=== PATIENT | female | born 1955 | race Caucasian/White ===

== ENCOUNTER → 2023-03-17 13:35 | Outpatient (REF) | payer MEDICARE, OTHER, SELFPAY | LOC: HWRAD 13:35 | PROVIDERS: ATTENDING PHYSICIAN Nurse Practitioner Adult Health; FAMILY PHYSICIAN Family Medicine | DX: Z87.891 Personal history of nicotine dependence (principal) | CPT/HCPCS: 71271 ==

== ENCOUNTER → 2023-09-29 10:57 | Outpatient (REF) | payer MEDICARE, OTHER, SELFPAY | LOC: HWRAD 10:57 | PROVIDERS: ATTENDING PHYSICIAN Hospitalist; FAMILY PHYSICIAN Family Medicine | DX: M81.0 Age-related osteoporosis without current pathological fracture (principal) | CPT/HCPCS: 77080 ==

== ENCOUNTER → 2024-03-19 14:04 | Outpatient (REF) | payer MEDICARE, OTHER, SELFPAY | LOC: HWRAD 14:04 | PROVIDERS: ATTENDING PHYSICIAN Internal Medicine Critical Care Medicine; FAMILY PHYSICIAN Family Medicine | DX: R91.1 Solitary pulmonary nodule (principal) | CPT/HCPCS: 71250 ==

== ENCOUNTER 2024-10-27 23:48 | Inpatient (IN) | payer MEDICARE, OTHER, SELFPAY ==
[2024-10-27 19:37] VITALS: BP 142/86
[2024-10-27 19:49] LABS: Hematocrit 35.3 % (37.0-47.0); Hemoglobin 12.0 g/dL (12.0-16.0); Mean Corp Hgb Conc. 34.0 g/dL (33.0-37.0); Mean Corpuscular Volume 86.5 fL (81.0-99.0); Nucleated Red Blood Cells % 0 %; Platelet Count 195 10^3/uL (130-400); Red Cell Dist. Width 14.2 % (11.5-14.5)
[2024-10-27 20:08] LABS: ALT (SGPT) 25 U/L (0-35); AST (SGOT) 34 U/L (14-36); Albumin 4.7 g/dl (3.5-5.0); Alkaline Phosphatase 97 U/L (38-126); Blood Urea Nitrogen 14 mg/dl (7-17); Calcium 9.5 mg/dl (8.4-10.2); Carbon Dioxide 26 mmol/L (22-30); Chloride 91 mmol/L (98-107); Glucose 160 mg/dl (70-99); Potassium 3.9 mmol/L (3.5-5.1); Sodium 124 mmol/L (135-145); Total Protein 7.7 g/dl (6.3-8.2); eGFR > 60.00
[2024-10-27 21:46] VITALS: BP 145/73
[2024-10-27 22:00] VITALS: BP 148/69
[2024-10-27 22:01] VITALS: BMI 30.3
--- NOTE | 2024-10-27 22:06 | EDRN ---
Pt says she has been lightheaded all day with intermittent nausea. Pt vomited prior to arrival 'because it got real bad' and says she has had no nausea or vomiting since arrival in the ED. Pt is 'fine' when she is still but as soon as she moves,
she feels lightheaded. No hx of similar symptoms. No ill contacts, fever/chills/cough, cp, abd pain, urinary symptoms. Pt has chronic sob no worse than usual. Pt notes pain in L shoulder blade and says she gets pains from arthritis.
--- NOTE | 2024-10-27 23:01 | ED.GENMED ---
History of Present Illness
General
Chief Complaint: Dizziness
Source: patient
Exam Limitations: none
Time Seen by Provider: 10/27/24 22:05
Nursing documentation reviewed up to this point in time: agreed with
History of Present Illness
History of Present Illness:
Patient presents to ED secondary to persistent dizziness, especially with turning of her head to right, and when standing up, along with episodes of vomiting and diarrhea starting this morning. Denies fever or chills. Denies headache. Denies
previous history of similar symptoms. Denies recent illness. Denies recent change in medications or diet. Denies recent travel. Denies sick contact. Denies headache. Denies blurred vision. Denies loss of sensation or weakness. Denies
difficulty with ambulation.
Past History
Past History
ED Past Medical History: Arrthythmia (atrial flutter), COPD, HTN, Hypercholesterolemia, Other (Palpitations, irregular heart rate,) and Other (Viral pericarditis with pleural effusions and pericardial effusion, joint pain)
ED Past Surgical History: Other (teeth removed with implanys)
Social History
Tobacco: Smoker
Alcohol: Daily
Personal:
Living: with family
Employment: Employed
Family History
Family History: CAD
Review of Systems
Review of Systems
Allergies reviewed?: Yes
All Other Systems: ROS reviewed and negative except as documented in HPI and ROS
Constitutional: Reports no symptoms; Denies fever or chills
Respiratory: Reports no symptoms
Cardiac: Reports no symptoms
ABD/GI: Reports nausea, vomiting and diarrhea
: Reports no symptoms
Musculoskeletal: Reports no symptoms
Skin: Reports no symptoms
Neurological: Reports dizzy; Denies headache or weakness
Phy Exam
Physical Exam
Physical Exam:
Physical Exam
General: mild distress, not acutely ill. afebrile
Head: nc/at. eomi. horizontal nystagmus noted
Neck: supple. normal range of motion.
Heart: s1/s2 regular rate and rhythm
Lungs: no acute respiratory distress. clear bilaterally
Abdomen: normal bowel sounds. not tender.
Neuro: alert and oriented x 3. no focal neurological deficits
Skin: no rash
Psychiatric: well kept. interactive and cooperative
Extremities: no edema. no calf tenderness.
Course
Orders/Labs/Results
Orders:
Orders
10/27/24 19:39
Electrocardiogram (*1) Urgent
Reason for Study: Vertigo / Dizzy
EKG- Treatment ONCE
10/27/24 19:43
CMP [Comprehensive Metabolic Panel] Urgent
Complete Blood Count/With Diff Urgent
Magnesium Urgent
Comment: ADD ON
Serum Osmolality Urgent
Comment: ADD ON
10/27/24 22:44
Add On- LAB Urgent
Tests Added?: serum osm, magnesium
Orthostatic VS- Treatment ONCE
10/27/24 23:00
0.9% Sodium Chloride 500 ml [Nss] 500 ml IV BOLUS
Meclizine [Antivert] 25 mg PO NOW STA
10/27/24 23:12
Osmolality, Random Urine Urgent
Date Specimen was Collected: 10/27/24
Time Specimen was Collected: 23:10
Urinalysis Reflex To Culture Urgent
Date Specimen was Collected: 10/27/24
Time Specimen was Collected: 23:10
Urine Microscopic Reflex Cult Urgent
Urine Sodium Urgent
Date Specimen was Collected: 10/27/24
Time Specimen was Collected: 23:10
Urine Culture Urgent
ELIGIO Source: U
Specimen Description:
Date Specimen was Collected: 10/27/24
Time Specimen was Collected: 23:10
10/27/24 23:34
Admit/Transfer Patient As Directed
Co-Sign Provider:
Level of Care: Inpatient admission
Assign to:: Telemetry
Physician / Group: lionel
Diagnosis: vertigo, hyponatremia
Reason for Telemetry: Arrhythmia
Date to Stop Telemetry: 10/30/24
Time to Stop Telemetry: 11:00
Reason for Hospitalization: vertigo, hyponatremia
Expected length of stay greater than two midnights?: Yes
ELOS- Estimated Length of Stay in days: 2
I certify the patient meets the requirements for IP care: Yes
Code Status As Directed
Resuscitation Status: Do not resuscitate
Reached after discussion with pt or family/Healthcare POA: Yes
DNR Bracelet Application ONCE
PRN Pain Medication Management As Directed
May give lesser potent ordered pain med per pt: Yes
preference::
Protocol:: Medication orders for pain may be administered in a
manner that supports deferring to patient preference
when the pt is:
- Requesting an ordered lesser potent pain medication.
Least to most potent pain medications are defined
as: acetaminophen < NSAID < tramadol < opioids
(morphine, oxycodone, hydromorphone).
- Requesting a lesser dose of the same medication IF
ORDERED.
- Requesting a less intrusive route of administration
if both routes are prescribed by the provider (PO <
IV).
10/28/24 00:02
CT Head W/o Iv Contrast Urgent
Reason For Exam: vertigo, hyponatremia
10/28/24 01:22
Albuterol [ProAIR HFA INHALER] 2 puff INH R Q4HPRN PRN wheezing, shortness of breath
Meclizine [Antivert] 12.5 mg PO Q8HPRN PRN
10/28/24 01:22
Activity As Directed
Activity Level: As Tolerated
Pneumatic Compression Sleeves As Directed
Type: Knee high
Vital Signs As Directed
Frequency: Per unit guidelines
Pt Eval And Treat Routine
Treatment: vestibular
Activity Level: As Tolerated
DX Deep Vein Thrombosis Video Routine
10/28/24 06:00
Complete Blood Count/With Diff IN AM
Comprehensive Metabolic Panel IN AM
10/28/24 08:00
Budesonide/Formoterol 160/4.5 [Symbicort 160/4.5 Mcg Inhaler] 2 puff INH R BID
Calcium 200mg(Ca. Carb. 500mg) [Tums Chewable Tablet] 200 mg PO DAILY
Lisinopril [Zestril] 20 mg PO DAILY
Multivitamin [Theragran] 1 tablet PO DAILY
10/28/24 Dinner
Regular
At Your Request: Full Participation
Fluid Restriction: 1440 mL/day (48 oz)
10/28/24 18:00
Metoprolol [Lopressor] 25 mg PO QPM
10/30/24 11:00
DC Protocol for Telemetry ONCE
Abnormal Lab Results
10/27/24 10/27/24
19:43 23:12
WBC 12.2 H 10^3/uL
(4.8-10.8)
RBC 4.08 L 10^6/uL
(4.20-5.40)
Hct 35.3 L %
(37.0-47.0)
Abs Immat Gran (auto) 0.1 H 10^3/uL
(0-0.05)
Absolute Neuts (auto) 8.5 H 10^3/uL
(1.4-6.5)
Absolute Monos (auto) 1.7 H 10^3/uL
(0.1-0.6)
Lymphocytes % 14.9 L %
(20.5-51.1)
Monocytes % 14.0 H %
(1.7-9.3)
Sodium 124 L mmol/L
(135-145)
Chloride 91 L mmol/L
(98-107)
Glucose 160 H mg/dl
(70-99)
Serum Osmolality 260 L mOsm/kg
(275-300)
Leukocyte Esterase Rfl 1+ A
(Negative)
Urine Bacteria (Reflex) Few A
(Negative)
10/27/24 19:43
10/27/24 19:43
Vital Signs
Initial and Last Documented VS:
Initial Vital Signs
Temp Pulse Resp BP Pulse Ox
97.5 F 80 16 142/86 98
10/27/24 19:37 10/27/24 19:37 10/27/24 19:37 10/27/24 19:37 10/27/24 19:37
Last Documented Vital Signs
Temp Pulse Resp BP Pulse Ox
97.7 F 80 18 158/86 98
10/28/24 01:15 10/28/24 01:15 10/28/24 01:15 10/28/24 01:15 10/28/24 01:15
MDM/Problems Addressed
MDM/Problems Addressed:
Patient's presenting symptoms concerning for likely vertigo, but difficult to exclude component of hyponatremia as contribute to her symptoms. As such, patient will be admitted for further evaluation and treatment.
*Pulse Oximetry
SaO2: 98
Oxygen Mode of Delivery: Room air
Patient hypoxic: no
*Critical Care Note
Total Time (30-74mins, 75-104mins- exclusive of procedures): Not Applicable
ED Attending Note
-
Portions of this chart may have been created with voice recognition software.� Occasional wrong word or��sound alike� substitutions may have occurred due to the inherent limitations of voice recognition software.
Discharge Plan
Departure
Patient Disposition: Admit
Date of Disposition: 10/27/24
Time of Disposition: 23:05
Admit to: Telemetry
Presentation/result/management discussed w/ accepting MD/DO: Hospitalist
Discharge Problem:
Dizziness, Acute hyponatremia
Interventions
Interventions:
*Risk Screen - Suicide Last Done: 10/27/24 19:37
*General Assessment Last Done: 10/27/24 19:37
*Neglect/Abuse Screening Last Done: 10/27/24 19:37
*ED- Fall Risk Assessment Last Done: 10/27/24 23:23
*ED COVID-19 Vaccine History Last Done: 10/27/24 19:37
*Nursing Disposition Last Done: 10/28/24 01:11
ED- Neurological Assessment Last Done: 10/27/24 22:01
ED- Cardiac Assessment Last Done: 10/27/24 22:01
Discharge Date and Time
Discharge Date/Time: 10/28/24 01:11
[2024-10-27 23:03] VITALS: BP 146/77; BP 162/83; BP 162/84; PULSE 77; PULSE 78; PULSE 80
[2024-10-27] MEDS: ANTIVERT 25 MG PO (23:13)
[2024-10-27] MEDS: NSS 500 IV (23:20)
[2024-10-27 23:29] LABS: Urine Character Clear (Clear)
--- NOTE | 2024-10-27 23:37 | HPS.HSE ---
Family Physician
-
Family Physician: Dariel Gibbs
Chief Complaint
-
vertigo
History of Present Illness
69-year-old female past medical history of atrial flutter, viral pericarditis, COPD, hypertension, hypercholesteremia, presenting with persistent dizziness especially when she turns her head to the right and when standing up starting today
associated with vomiting. She also has some loose stools but denies overt diarrhea. Denies abdominal pain or fever.
She denies headache. She denies any prior history of similar symptoms of vertigo. Denies sick contacts. Denies any loss of sensation or weakness. Denies blurred vision. Denies ringing in the ears or hearing loss.
Patient has had a history of hyponatremia previously and was admitted here in 2022 secondary to hyponatremia in association with COVID infection. She drinks around 80 ounces of fluids per day which includes water, coffee and 2 glasses of wine per
day. She has been on hydrochlorothiazide for few years.
She is a former smoker.
Medical History
Past Medical History
Past Medical History: Reports Other (atrial flutter, viral pericarditis, COPD, hypertension, hypercholesteremia)
Past Surgical History: Reports None
Social History
Tobacco: Former Smoker
Alcohol: Daily
Drug: None
Family History
Family History: Not pertinent
Allergies / Home Medications
Allergies reflects when Allergies were last updated in [facility].
Home Medications with original date entered in [facility]
Allergy/Medication List:
Allergies
Allergy/AdvReac Type Severity Reaction Status Date / Time
No Known Allergies Allergy Verified 10/27/24 22:03
Home Medications
calcium carbonate (Calcium 600) 600 mg PO DAILY Supplement 05/31/13
multivitamin with folic acid 400 mcg tablet (Tab-A-Augustine) 1 tab PO DAILY Supplement 03/10/17
albuterol sulfate 90 mcg/actuation aerosol inhaler (Ventolin HFA) 2 puff inhalation R Q4HPRN PRN wheezing, shortness of breath 01/22/19
budesonide 160 mcg-glycopyr 9 mcg-formot 4.8 mcg/actuation HFA inhaler ([employer]) 2 inh inhalation R BID Lung/Breathing Issues 12/23/22
metoprolol tartrate 25 mg tablet 25 mg PO QPM Blood Pressure 12/23/22
denosumab 60 mg/mL subcutaneous syringe (Prolia) 60 mg SC [id number] 10/27/24
lisinopril 20 mg-hydrochlorothiazide 25 mg tablet 1 tab PO DAILY 10/27/24
Review of Systems
-
History Source: Patient
A 12 point ROS was completed and negative except as noted: Yes
Constitutional: Reports No Symptoms
EENT: Reports No Symptoms
Respiratory: Reports No Symptoms
Cardiac: Reports No Symptoms
Abdomen/GI: Reports No Symptoms
: Reports No Symptoms
Musculoskeletal: Reports No Symptoms
Skin: Reports No Symptoms
Neurological: Reports See HPI
Endocrine: Reports No Symptoms
Hematologic/Lymphatic: Reports No Symptoms
Psych: Reports No Symptoms
Physical Exam
Vital Signs
Vital Signs
Temp Pulse Resp BP Pulse Ox
97.5 F 72 16 148/69 98
10/27/24 19:37 10/27/24 22:30 10/27/24 22:30 10/27/24 22:00 10/27/24 23:05
Physical Exam
General: Well Developed, Well Nourished and No Apparent Distress
HEENT: NormoCephalic, Moist mucous membranes and Atraumatic
Respiratory: Clear
Cardiac: S1/S2 and Regular Rhythm; No Murmur or Rub
GI: Soft, Non Tender, Non Distended and Normal Bowel Sounds; No Organomegaly
Rectal: Deferred by Provider
Musculoskeletal: No Clubbing, No Cyanosis and No Edema
Skin: No Rash
Neuro: Nonfocal/grossly intact
Laboratory Results
-
10/27/24 19:43
10/27/24 19:43
Laboratory Results
Total Bilirubin 0.7 mg/dl (0.2-1.3) 10/27/24 19:43
AST 34 U/L (14-36) 10/27/24 19:43
ALT 25 U/L (0-35) 10/27/24 19:43
Alkaline Phosphatase 97 U/L (38-126) 10/27/24 19:43
Data Reviewed
-
Lab Data: Labs Reviewed by me
Old Records: Reviewed
Impression/Plan
-
IMPRESSION:
PLAN:
# Acute vertigo likely peripheral secondary to BPPV versus vestibular neuritis versus exacerbated by worsening of chronic hyponatremia versus less likely CVA
-Improvement with meclizine, continue
-Check orthostatic vital signs
- Vestibular therapy
-Check CT head
- May require MRI brain to evaluate for CVA if no improvement with medication, vestibular therapy and treatment of hyponatremia
# Worsening of chronic hyponatremia likely secondary to polydipsia/beer potomania/exacerbated by hydrochlorothiazide
- Her baseline sodium appears to be around 132
- Doubt that the hyponatremia is the sole cause of vertigo
- Fluid restriction to 48 ounces
- 1 L IV fluids given
- Hold hydrochlorothiazide
History of atrial flutter
- Not on anticoagulation
History of viral pericarditis
COPD
- Continue albuterol, Breztri
Essential hypertension
- Continue lisinopril
- Continue metoprolol
Hypercholesterolemia
Osteoporosis
DNR/DNI
DVT prophylaxis SCDs
Regular diet
[2024-10-27 23:50] LABS: Magnesium 1.9 mg/dl (1.6-2.3)
[2024-10-28] VITALS: BP 137/59
[2024-10-28 00:03] LABS: Urine Red Blood Cell 0-2 /HPF (0-2)
[2024-10-28 01:15] VITALS: BP 158/86
[2024-10-28 01:18] VITALS: BMI 30.3
[2024-10-28 03:28] VITALS: BP 111/71
--- NOTE | 2024-10-28 05:19 | PTCARENOTE ---
Pt admitted from ED. AAOx3. No reports of pain. Pt afebrile, VSS. R hand IV C/D/I. Lungs clear, dyspnea on exertion. No nausea or vomiting reported. Call naylor within reach and bed in lowest position. Pt using walker with ambulation.
[2024-10-28 05:31] LABS: Hematocrit 35.5 % (37.0-47.0); Hemoglobin 12.1 g/dL (12.0-16.0); Mean Corp Hgb Conc. 34.1 g/dL (33.0-37.0); Mean Corpuscular Volume 88.5 fL (81.0-99.0); Nucleated Red Blood Cells % 0 %; Platelet Count 190 10^3/uL (130-400); Red Cell Dist. Width 14.0 % (11.5-14.5)
[2024-10-28 06:31] LABS: ALT (SGPT) 25 U/L (0-35); AST (SGOT) 29 U/L (14-36); Albumin 4.5 g/dl (3.5-5.0); Alkaline Phosphatase 75 U/L (38-126); Blood Urea Nitrogen 10 mg/dl (7-17); Calcium 9.2 mg/dl (8.4-10.2); Carbon Dioxide 28 mmol/L (22-30); Chloride 93 mmol/L (98-107); Estimated Creatinine Clearance 83 ml/min; Glucose 108 mg/dl (70-99); Potassium 3.7 mmol/L (3.5-5.1); Sodium 129 mmol/L (135-145); Total Protein 7.5 g/dl (6.3-8.2); eGFR > 60.00
[2024-10-28 07:00] VITALS: BP 144/73
[2024-10-28] MEDS: SYMBICORT 160/4.5 MCG INHALER 2 PUFF INH (07:44)
[2024-10-28] MEDS: SPIRIVA RESPIMAT 2.5 MCG 2 PUFF INH (07:44)
[2024-10-28] MEDS: TUMS CHEWABLE TABLET 200 MG PO (09:14)
[2024-10-28] MEDS: ZESTRIL 20 MG PO (09:14)
[2024-10-28] MEDS: THERAGRAN 1 TABLET PO (09:14)
--- NOTE | 2024-10-28 09:54 | W.PN.HOSP.TC ---
Today's Communication/Plan
-
PT consult
Assessment / Plan
Assessment / Plan
Gen-AAOx3, NAD
HEENT-NC, AT, anicteric, clear oral mm
Neck-supple
CV-reg, no M, +S1/S2
Lungs-clear B/L
Abd-soft, NT, ND
Ext-no edema
Musculoskeletal-no cyanosis, clubbing
Skin-warm and dry
Mvapo-ioh-wnoaj upper and lower extremities, normal hnmwbd-at-[id number] test bilaterally
Hints exam: Unidirectional right beating nystagmus with right and lateral gaze, vestibular ocular reflex appears not preserved, absent skew
Psych-calm, cooperative
BPPV -recommend vestibular therapy, PT consulted. Would avoid vestibular suppressants. Symptoms started in the middle of the night when she got up to use the bathroom and lasted only a few seconds at a time. Subsequently symptoms recurred
throughout the day to the point where she developed vomiting prompting her visit to the ER.
Denies history of vertigo.
Acute on chronic hyponatremia -likely multifactorial etiology including excessive fluid intake, HCTZ use, possible alcohol. Recommend fluid restriction, stop HCTZ. Sodium improving.
Urine osmolality 480, urine sodium 72. Serum osmolality 260. Labs consistent with SIADH.
History of atrial flutter -on metoprolol for rate control. Unclear why she is not on anticoagulation. [id number] score is 3. 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 Her sees
Edward. She is also not on aspirin.
EKG on admission shows normal sinus rhythm.
Essential hypertension -stop HCTZ due to hyponatremia, continue lisinopril and metoprolol. Discussed with patient.
COPD without exacerbation -stable. Continue inhalers.
Hyperlipidemia
Obesity due to excess calories
Osteoporosis
DNR
Dispo -potential discharge later today if clinically improved after PT consult.
Anticipated Discharge: Today
Subjective/Interval History
-
Date of Service: October 28, 2024
Patient seen and examined. Overall feeling better now, complaining of feeling hungry. Denies vertigo now.
Objective Data
-
Labs:
Laboratory Results
10/28/24
05:15
WBC 9.3
Hgb 12.1
Hct 35.5 L
Plt Count 190
Sodium 129 L
Potassium 3.7
Chloride 93 L
Carbon Dioxide 28
BUN 10
Creatinine 0.6
Glucose 108 H
Calcium 9.2
Total Bilirubin 0.8
AST 29
ALT 25
Alkaline Phosphatase 75
Vital Signs:
Vital Signs
Temp Pulse Resp BP Pulse Ox
98.5 F 84 14 144/73 95
10/28/24 07:00 10/28/24 07:53 10/28/24 07:53 10/28/24 07:00 10/28/24 07:53
I&O
10/27/24 10/28/24 10/29/24
06:59 06:59 06:59
Intake Total 120 / 120
Balance 120 / 120
Review of Systems
-
History Source: Patient
All other systems: Reviewed and negative
--- NOTE | 2024-10-28 10:34 | W.DS.TRANS ---
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
-
Discharge Instructions:
Discharge Diagnosis/Procedures Benign paroxysmal positional vertigo,
hyponatremia
Diet Regular,Restrict fluids to 48 oz
Activity As tolerated
Driving Restrictions As prior to admission
Bathing Restrictions None
Instructions:
Stand-Alone Forms:
Changes to Home Medications: Yes
Discharge Medications:
DC Medications w/original date entered in [facility]
calcium carbonate (Calcium 600) 600 mg PO DAILY Supplement 05/31/13
multivitamin with folic acid 400 mcg tablet (Tab-A-Augustine) 1 tab PO DAILY Supplement 03/10/17
albuterol sulfate 90 mcg/actuation aerosol inhaler (Ventolin HFA) 2 puff inhalation R Q4HPRN PRN wheezing, shortness of breath 01/22/19
budesonide 160 mcg-glycopyr 9 mcg-formot 4.8 mcg/actuation HFA inhaler (Breztri [employer]) 2 inh inhalation R BID Lung/Breathing Issues 12/23/22
metoprolol tartrate 25 mg tablet 25 mg PO QPM Blood Pressure 12/23/22
denosumab 60 mg/mL subcutaneous syringe (Prolia) 60 mg SC [id number] 10/27/24
lisinopril 20 mg tablet 20 mg PO DAILY #30 tabs 10/28/24
Home Medication Changes
Stop hydrochlorothiazide
Pending Results: No
[2024-10-28 10:36] VITALS: BP 121/89; PULSE 88; O2SAT 95
--- NOTE | 2024-10-28 11:07 | CM ---
Alert awake oriented patient who lives with in a one story home with 2 steps to enter . She is independent in driving and all ADLs. She uses a walker as needed.
No hx of VN/SNF
Pharmacy [facility]
PCP Dr Dariel Gibbs
PLAN Home no needs .Will set up out pt Vestibular clinic
[2024-10-28 11:12] VITALS: BP 146/83
== END 2024-10-28 12:01 | disposition home or self-care (01) | DRG 149 ==
LOC: 3 WEST ACU 23:48
PROVIDERS: Emergency Medicine; ADMITTING PHYSICIAN Hospitalist; ATTENDING PHYSICIAN Hospitalist; EMERGENCY PHYSICIAN Emergency Medicine; FAMILY PHYSICIAN Family Medicine
DX: H81.10 Benign paroxysmal vertigo, unspecified ear (principal); E87.1 Hypo-osmolality and hyponatremia; I48.92 Unspecified atrial flutter; I10 Essential (primary) hypertension; J44.9 Chronic obstructive pulmonary disease, unspecified; E78.00 Pure hypercholesterolemia, unspecified; Z87.891 Personal history of nicotine dependence; Z86.16 Personal history of COVID-19; M81.0 Age-related osteoporosis without current pathological fracture; Z66 Do not resuscitate; E78.5 Hyperlipidemia, unspecified; E66.09 Other obesity due to excess calories; Z68.30 Body mass index [BMI] 30.0-30.9, adult; Z79.899 Other long term (current) drug therapy
CPT/HCPCS: 70450; 80053; 81003; 81015; 83735; 83930; 83935; 84300; 85025; 87086; 93005; 94640; 97163; 99285

== ENCOUNTER 2024-11-15 16:40 | Outpatient (RCR) | payer MEDICARE, OTHER, SELFPAY | END 2024-11-15 23:59 | disposition home or self-care (01) | LOC: RPT 16:40 | PROVIDERS: ATTENDING PHYSICIAN Family Medicine | DX: R42 Dizziness and giddiness (principal); Z73.6 Limitation of activities due to disability; R26.89 Other abnormalities of gait and mobility | CPT/HCPCS: 97112; 97161 ==